=== PATIENT | male | born 1940 | race Caucasian/White ===

== ENCOUNTER 2016-06-05 20:33 | Inpatient (IN) | payer MEDICARE, MEDICAID ==
[~2016-06-05] VITALS: Ht 175.3 cm; Wt 68.5 kg
[2016-06-05 21:28] LABS: BASOPHILS # (AUTO) 0.4 /CMM (0.0-0.2); BASOPHILS % (AUTO) 3.5 % (0.0-2.0); DIFF TOTAL % 100 %; EOSINOPHILS % (AUTO) 0.4 % (0.0-6.0); HEMATOCRIT 36 % (39-51); HEMOGLOBIN 12.1 g/dL (13.5-17.5); LYMPHOCYTES # (AUTO) 1.2 /CMM (0.8-4.8); LYMPHOCYTES % (AUTO) 10.1 % (20.0-44.0); MEAN CORPUSCULAR HEMOGLOBIN 30 PG (26.0-33.0); MEAN CORPUSCULAR HGB CONC 34 g/dl (31.0-36.0); MEAN CORPUSCULAR VOLUME 87 fL (80-96); MONOCYTES # (AUTO) 0.8 /CMM (0.1-1.30); MONOCYTES % (AUTO) 6.6 % (2.0-12.0); NEUTROPHILS # (AUTO) 9.8 /CMM (1.8-8.9); NEUTROPHILS % (AUTO) 79.4 % (43.0-81.0); PLATELET COUNT (AUTO) 290 /CMM (150-450); RED BLOOD CELL COUNT(AUTO) 4.08 MIL/uL (4.5-6.0); WHITE BLOOD COUNT (AUTO) 12.2 K/uL (4.3-11.0)
[2016-06-05 21:29] LABS: CALCIUM, SERUM 8.2 mg/dL (8.5-10.1); CREATININE 0.8 mg/dL (0.6-1.3); POTASSIUM 3.3 mmol/L (3.5-5.1)
[2016-06-05 21:32] LABS: INR 1.01 (0.87-1.13); PROTHROMBIN TIME 10.6 SECS (9.5-12.7)
[2016-06-05 21:36] LABS: TROPONIN I 0.033 ng/mL (0.00-0.056)
[2016-06-05 23:06] VITALS: BP 140/80
[2016-06-06] MEDS ORDERED: oxyCODONE/APAP (5/325 MG) 1 UDTAB TABLET ONE ×2 (00:18→06:31)
[2016-06-06] MEDS ORDERED: ZOLPIDEM TARTRATE 5 MG TABLET ONE (00:19)
[2016-06-06] MEDS: oxyCODONE/APAP (5/325 MG) 1 UDTAB TABLET PO PRN ×2 (00:28→06:37)
[2016-06-06] MEDS ORDERED: ZOLPIDEM TARTRATE 5 MG TABLET PO PRN ×2 (00:30→22:00)
[2016-06-06] MEDS ORDERED: DEXTROSE 50%-WATER 50 ML DISP.SYRIN IV PRN (00:30)
[2016-06-06] MEDS: INSULIN REGULAR, HUMAN 100 UNIT/ML 3 ML VIAL SQ PRN ×4 (00:33→17:30)
[2016-06-06] MEDS ORDERED: MECLIZINE HCL 12.5 MG TABLET ONE ×2 (00:46→06:32)
[2016-06-06] MEDS ORDERED: BENAZEPRIL HCL 20 MG TABLET ONE (00:46)
[2016-06-06] MEDS ORDERED: ISOSORBIDE DINITRATE (20MG) 20 MG TABLET ONE (00:47)
[2016-06-06] MEDS ORDERED: GABAPENTIN 100 MG CAPSULE ONE (00:47)
[2016-06-06] MEDS: BLOOD SUGAR DIAGNOSTIC 1 EACH STRIP IN SCH ×4 (00:50→17:29)
[2016-06-06] MEDS: GABAPENTIN 100 MG CAPSULE PO SCH ×4 (00:51→17:28)
[2016-06-06] MEDS: ISOSORBIDE DINITRATE (20MG) 20 MG TABLET PO SCH ×4 (00:51→17:28)
[2016-06-06] MEDS ORDERED: BENAZEPRIL HCL 10 MG TABLET ONE (00:51)
[2016-06-06] MEDS: MECLIZINE HCL 12.5 MG TABLET PO PRN ×2 (00:54→06:36)
[2016-06-06] MEDS: BENAZEPRIL HCL 10 MG TABLET PO SCH ×2 (00:54→09:42)
[2016-06-06] MEDS ORDERED: LORAZEPAM 0.5 MG TABLET ONE (01:05)
[2016-06-06] MEDS: LORAZEPAM 0.5 MG TABLET PO PRN ×2 (01:08→09:36)
[2016-06-06] MEDS ORDERED: MECL12.5 PO (03:04)
[2016-06-06] MEDS ORDERED: LORA-258 PO (03:04)
[2016-06-06] MEDS ORDERED: FINA5TAB11 PO (03:04)
[2016-06-06] MEDS ORDERED: MULT-1119 PO (03:04)
[2016-06-06] MEDS ORDERED: ASPI81TA2 PO (03:04)
[2016-06-06] MEDS ORDERED: GABA-532 PO (03:04)
[2016-06-06] MEDS ORDERED: NA P133E RC (03:04)
[2016-06-06] MEDS ORDERED: ISOS20TA8 PO (03:04)
[2016-06-06] MEDS ORDERED: ACET-868 PO (03:04)
[2016-06-06] MEDS ORDERED: ZOLP5TAB2 PO (03:04)
[2016-06-06] MEDS ORDERED: QUET25TA PO (03:04)
[2016-06-06] MEDS ORDERED: BISA10SU61 RC (03:04)
[2016-06-06] MEDS ORDERED: NITR0.4T6 SL (03:04)
[2016-06-06] MEDS ORDERED: VIT1CAPS32 PO (03:04)
[2016-06-06] MEDS ORDERED: IPRA3AMP IH (03:04)
[2016-06-06] MEDS ORDERED: NIFE10CA2 PO (03:04)
[2016-06-06] MEDS ORDERED: FLUT1DIS28 IH (03:04)
[2016-06-06] MEDS ORDERED: METO25TA6 PO (03:04)
[2016-06-06] MEDS ORDERED: BENA20TA2 PO (03:04)
[2016-06-06] MEDS ORDERED: ATOR10TA PO (03:04)
[2016-06-06] MEDS ORDERED: OXYC-128 PO (03:04)
[2016-06-06] MEDS ORDERED: VIT500LI PO (03:04)
[2016-06-06] MEDS ORDERED: FURO-145 PO (03:04)
[2016-06-06] MEDS ORDERED: PANT40TA4 PO (03:04)
[2016-06-06] MEDS ORDERED: HYDR-552 PO (03:04)
[2016-06-06] MEDS ORDERED: PRED20TA PO (03:04)
[2016-06-06] MEDS ORDERED: POTA20TA83 PO (03:04)
[2016-06-06] MEDS ORDERED: MAGN400O6 PO (03:04)
[2016-06-06] MEDS ORDERED: ZINC220C8 PO (03:04)
[2016-06-06 03:26] LABS: BASOPHILS # (AUTO) 0.1 /CMM (0.0-0.2); BASOPHILS % (AUTO) 0.8 % (0.0-2.0); DIFF TOTAL % 100 %; EOSINOPHILS # (AUTO) 0.2 /CMM (0.0-0.7); EOSINOPHILS % (AUTO) 1.7 % (0.0-6.0); HEMATOCRIT 34 % (39-51); LYMPHOCYTES # (AUTO) 1.7 /CMM (0.8-4.8); MEAN CORPUSCULAR HEMOGLOBIN 28 PG (26.0-33.0); MEAN CORPUSCULAR HGB CONC 32 g/dl (31.0-36.0); MEAN CORPUSCULAR VOLUME 88 fL (80-96); MONOCYTES # (AUTO) 0.9 /CMM (0.1-1.30); MONOCYTES % (AUTO) 7.3 % (2.0-12.0); NEUTROPHILS % (AUTO) 76.2 % (43.0-81.0); PLATELET COUNT (AUTO) 293 /CMM (150-450); RED BLOOD CELL COUNT(AUTO) 3.89 MIL/uL (4.5-6.0); WHITE BLOOD COUNT (AUTO) 11.8 K/uL (4.3-11.0)
[2016-06-06 03:41] LABS: CALCIUM, SERUM 8.5 mg/dL (8.5-10.1); CREATININE 0.7 mg/dL (0.6-1.3); POTASSIUM 3.7 mmol/L (3.5-5.1)
[2016-06-06 04:24] VITALS: BP 140/70
[2016-06-06 06:40] VITALS: BP 123/73
[2016-06-06 08:00] VITALS: BP 123/73
[2016-06-06] MEDS ORDERED: Z GUARD REMEDY 2 OZ OINT TP SCH (09:30)
[2016-06-06] MEDS ORDERED: Z GUARD REMEDY 2 OZ OINT TP PRN (09:30)
[2016-06-06] MEDS: HYDROGEL DRESSING 90 GM TUBE TP SCH ×2 (09:30→12:16)
[2016-06-06] MEDS ORDERED: BISACODYL SUPP (10 MG) 10 MG/SUPP.RECT SUPP.RECT RC PRN (10:00)
[2016-06-06] MEDS ORDERED: MECLIZINE HCL 12.5 MG TABLET PO PRN (10:00)
[2016-06-06] MEDS ORDERED: ASPIRIN 81 MG TAB.CHEW PO SCH (10:00)
[2016-06-06] MEDS ORDERED: MULTIVITAMINS,THERAPEUTIC 1 UDTAB TABLET PO SCH (10:00)
[2016-06-06] MEDS ORDERED: predniSONE 20 MG TABLET PO SCH (10:00)
[2016-06-06] MEDS ORDERED: ATORVASTATIN 10 MG TABLET PO SCH (10:00)
[2016-06-06] MEDS ORDERED: NITROGLYCERIN 0.4 MG/TAB BOTTLE SL PRN (10:00)
[2016-06-06] MEDS ORDERED: FINASTERIDE (5 MG) 5 MG TABLET PO SCH (10:00)
[2016-06-06] MEDS ORDERED: PANTOPRAZOLE 40 MG TABLET.DR PO SCH (10:00)
[2016-06-06] MEDS ORDERED: BENAZEPRIL HCL 20 MG TABLET PO SCH (10:00)
[2016-06-06] MEDS ORDERED: ASCORBIC ACID SYRUP 500 MG/5 ML UDC PO SCH (10:00)
[2016-06-06] MEDS ORDERED: POTASSIUM CHLORIDE 20 MEQ TAB.PRT.SR PO SCH (10:00)
[2016-06-06] MEDS ORDERED: oxyCODONE/APAP (5/325 MG) 1 UDTAB TABLET PO PRN (10:00)
[2016-06-06] MEDS ORDERED: FUROSEMIDE 20 MG TABLET PO SCH (10:00)
[2016-06-06] MEDS: METOPROLOL TARTRATE 25 MG TABLET PO SCH ×2 (10:29→17:28)
[2016-06-06] MEDS: QUETIAPINE FUMARATE 25 MG TABLET PO SCH ×2 (10:32→12:18)
[2016-06-06] MEDS: HYDROCODONE/APAP 5/325MG 1 EACH TABLET PO PRN ×2 (10:35→17:27)
[2016-06-06] MEDS: ACETAMINOPHEN 325 MG TABLET PO SCH ×3 (10:35→17:28)
[2016-06-06] MEDS: NIFEdipine (10MG) 10 MG CAPSULE PO SCH ×2 (10:54→17:28)
[2016-06-06] MEDS ORDERED: ASCORBIC ACID 500 MG TABLET PO SCH (11:12)
[2016-06-06 12:00] VITALS: BP 137/81
[2016-06-06] MEDS ORDERED: LORAZEPAM 0.5 MG TABLET PO SCH (12:00)
[2016-06-06] MEDS: FLUTICASONE/SALMETEROL DISKUS IH SCH ×2 (12:15→17:26)
[2016-06-06] MEDS ORDERED: ISOSORBIDE DINITRATE (20MG) 20 MG TABLET PO SCH (13:00)
[2016-06-06] MEDS ORDERED: Medication Not On Formulary EA (Ipratropium/Albuterol Sulfate (Ipratr-Albuterol 0.5-3 Mg IH SCH (13:00)
[2016-06-06] MEDS ORDERED: ALBUTEROL FS 2.5 MG/0.5 ML VIAL.NEB NEB SCH (15:30)
[2016-06-06] MEDS ORDERED: IPRATROPIUM NEB FS 0.5 MG/2.5 ML AMPUL.NEB NEB SCH (15:30)
[2016-06-06 16:00] VITALS: BP_SYST 117; BP_SYST 123; BP_DIAS 73; BP_DIAS 80
[2016-06-06] MEDS ORDERED: ZINC SULFATE 220 MG CAPSULE PO SCH (17:00)
[2016-06-06 19:20] VITALS: BP 113/75
[2016-06-06] MEDS ORDERED: NA PHOS,M-B/NA PHOS,DI-BA 1 EA ENEMA RC PRN (22:00)
[2016-06-06] MEDS ORDERED: MAGNESIUM HYDROXIDE 30 ML UDC PO PRN (22:00)
[2016-06-07] MEDS ORDERED: BENAZEPRIL HCL 20 MG TABLET PO SCH (09:00)
[2016-06-07] MEDS ORDERED: Medication Not On Formulary EA (Vit C/Vitamin E Acetate/Cranb (Cranberry Concentrate Sof PO SCH (09:00)
== END 2016-06-06 19:50 | DRG 313 ==
LOC: ER 20:41 → TELE 22:14 → TELE-TD 06-06 11:45 → TELE 06-06 11:54
PROVIDERS: ADMIT Internal Medicine Nephrology; ATTEND Internal Medicine Nephrology
DX: R07.89 Other chest pain (principal); J44.0 Chronic obstructive pulmonary disease with (acute) lower respiratory infection; K21.9 Gastro-esophageal reflux disease without esophagitis; J44.9 Chronic obstructive pulmonary disease, unspecified; E87.6 Hypokalemia; I10 Essential (primary) hypertension
CPT/HCPCS: 36415; 71010-TC; 80048-TC; 82962-TC; 84484-TC; 85025-TC; 85730-TC; 87081-TC; 94799-TC; A4606; A6248; A6403; J1815; J8597; Z7610

== ENCOUNTER 2016-06-22 13:20 | Inpatient (IN) | payer MEDICARE, MEDICAID ==
[~2016-06-22] VITALS: Ht 180.3 cm; Wt 70.4 kg
[~2016-06-22 13:20] MED LIST: ACET-868 PO; ASPI81TA2 PO; ATOR10TA PO; BENA20TA2 PO; BISA10SU61 RC; FINA5TAB11 PO; FLUT1DIS28 IH; FURO-145 PO; GABA-532 PO; HYDR-552 PO; IPRA3AMP IH; ISOS20TA8 PO; LORA-258 PO; MAGN400O6 PO; MECL12.5 PO; METO25TA6 PO; MULT-1119 PO; NA P133E RC; NIFE10CA2 PO; NITR0.4T6 SL; OXYC-128 PO; PANT40TA4 PO; POTA20TA83 PO; PRED20TA PO; QUET25TA PO; VIT1CAPS32 PO; VIT500LI PO; ZINC220C8 PO; ZOLP5TAB2 PO
[2016-06-22 13:51] LABS: BASOPHILS # (AUTO) 0.9 /CMM (0.0-0.2); BASOPHILS % (AUTO) 4.2 % (0.0-2.0); DIFF TOTAL % 100 %; EOSINOPHILS # (AUTO) 0.2 /CMM (0.0-0.7); EOSINOPHILS % (AUTO) 0.7 % (0.0-6.0); HEMATOCRIT 42 % (39-51); HEMOGLOBIN 13.6 g/dL (13.5-17.5); LYMPHOCYTES # (AUTO) 3.5 /CMM (0.8-4.8); LYMPHOCYTES % (AUTO) 15.5 % (20.0-44.0); MEAN CORPUSCULAR HEMOGLOBIN 28 PG (26.0-33.0); MEAN CORPUSCULAR HGB CONC 33 g/dl (31.0-36.0); MEAN CORPUSCULAR VOLUME 86 fL (80-96); MONOCYTES # (AUTO) 0.5 /CMM (0.1-1.30); MONOCYTES % (AUTO) 2.2 % (2.0-12.0); NEUTROPHILS # (AUTO) 17.3 /CMM (1.8-8.9); NEUTROPHILS % (AUTO) 77.4 % (43.0-81.0); PLATELET COUNT (AUTO) 553 /CMM (150-450); RED BLOOD CELL COUNT(AUTO) 4.84 MIL/uL (4.5-6.0); WHITE BLOOD COUNT (AUTO) 22.4 K/uL (4.3-11.0)
[2016-06-22] MEDS ORDERED: INSU100V27 SQ (13:57)
[2016-06-22] MEDS ORDERED: TAMS0.4C34 PO (13:57)
[2016-06-22] MEDS ORDERED: CLON0.1T PO (13:57)
[2016-06-22] MEDS ORDERED: MULT1TAB11 PO (13:57)
[2016-06-22] MEDS ORDERED: BLOO-668 IN (13:57)
[2016-06-22] MEDS ORDERED: PRED10TA PO (13:57)
[2016-06-22] MEDS ORDERED: FERR325T28 PO (13:57)
[2016-06-22] MEDS ORDERED: CARV25TA PO (13:57)
[2016-06-22] MEDS ORDERED: NIFE20CA PO (13:57)
[2016-06-22] MEDS ORDERED: ASCO500T9 PO (13:57)
[2016-06-22] MEDS ORDERED: HYDR-4076 PO (13:57)
[2016-06-22] MEDS ORDERED: LISI40TA4 PO (13:57)
[2016-06-22] MEDS ORDERED: FLUT1DIS5 IH (13:57)
[2016-06-22] MEDS ORDERED: MECL-102 PO (13:57)
[2016-06-22] MEDS ORDERED: DULO30CA2 PO (13:57)
[2016-06-22] MEDS ORDERED: CYAN500T2 PO (13:57)
[2016-06-22 14:03] LABS: CALCIUM, SERUM 8.6 mg/dL (8.5-10.1); CREATININE 0.5 mg/dL (0.6-1.3); POTASSIUM 3.9 mmol/L (3.5-5.1)
[2016-06-22 14:05] LABS: PROTHROMBIN TIME 10.5 SECS (9.5-12.7)
[2016-06-22 14:11] LABS: TROPONIN I 0.055 ng/mL (0.00-0.056)
[2016-06-22 14:11] LABS: ADD UA MICROSCOPIC YES; KETONES,URINE 15 (NEGATIVE); LEUKOCYTE ESTERASE ,URINE Small (NEGATIVE); PH,URINE 5.5 (5.0-8.0)
[2016-06-22 14:14] LABS: ABG BASE EXCESS 11.8 mmol/L; ABG PCO2 78.1 mmHg (35.0-45.0); ABG PH 7.338 (7.350-7.450); ABG PO2 301.2 mmHg (75.0-100.0); ABG TOTAL HEMOGLOBIN 13.3 G/dL (13.5-18.0); ALLEN TEST Pass; AaDO2 187.2 mmHg; O2Hb 97.9 % (94.0-97.0)
[2016-06-22] MEDS ORDERED: IOHEXOL-350 100 ML VIAL IV ONE (14:29)
[2016-06-22] MEDS ORDERED: CT SWABBABLE VALVE TRANS SET 1 EA INFUS.SET MC ONE (14:29)
[2016-06-22] MEDS ORDERED: IV NS 0.9% 250 ML IV ONE ×2 (14:29→18:47)
[2016-06-22 14:34] LABS: ADD URINE CULTURE NO
[2016-06-22 14:36] LABS: RBC,URINE 21-50 /HPF (0-2)
[2016-06-22 14:44] LABS: LACTIC ACID 0.7 mmol/L (0.4-2.0)
[2016-06-22] MEDS ORDERED: SECONDARY IV SET 1 EA INFUS.SET MC ONE ×2 (14:53→18:47)
[2016-06-22] MEDS ORDERED: IV NS 0.9% 100 ML IV ONE (14:53)
[2016-06-22 15:00] LABS: LYMPHOCYTES % (MANUAL) 7 % (16-48); PLATELET ESTIMATE INCREASED
[2016-06-22] MEDS ORDERED: VANCOMYCIN 1 GM in IV D5W 250 ML IV ONE (15:00)
[2016-06-22] MEDS ORDERED: IV NS 0.9% 1,000 ML BAG IV ONE (15:00)
[2016-06-22] MEDS ORDERED: CEFEPIME 1 GM in IV D5W 50 ML IV ONE (15:00)
[2016-06-22 15:01] LABS: ANISOCYTOSIS 1+
[2016-06-22] MEDS ORDERED: methylPREDNISolone SOD SUCC 125 MG/2ML VIAL IV ONE (16:00)
[2016-06-22] MEDS ORDERED: methylPREDNISolone SOD SUCC 125 MG/2ML VIAL ONE (16:01)
[2016-06-22] MEDS ORDERED: IPRATROPIUM NEB FS 0.5 MG/2.5 ML AMPUL.NEB ONE (16:10)
[2016-06-22] MEDS ORDERED: ALBUTEROL FS 2.5 MG/3 ML VIAL.NEB ONE (16:10)
[2016-06-22] MEDS ORDERED: ALBUTEROL FS 2.5 MG/3 ML VIAL.NEB NEB ONE (16:30)
[2016-06-22] MEDS ORDERED: IPRATROPIUM NEB FS 0.5 MG/2.5 ML AMPUL.NEB NEB ONE (16:30)
[2016-06-22 18:00] VITALS: BP 139/73
[2016-06-22] MEDS ORDERED: IV SET PRIMARY PUMP SET 1 EA INFUS.SET MC ONE (18:47)
[2016-06-22] MEDS ORDERED: Z GUARD REMEDY 2 OZ OINT TP PRN (19:00)
[2016-06-22] MEDS ORDERED: DEXTROSE 50%-WATER 50 ML DISP.SYRIN IV PRN (19:00)
[2016-06-22] MEDS: ZOSYN IVPB 3.375 G in IV D5W 50ml IV SCH (19:02)
[2016-06-22] MEDS: ENOXAPARIN SODIUM 30 MG/0.3 ML DISP.SYRIN SQ SCH (19:06)
[2016-06-22] MEDS: ALBUTEROL FS 2.5 MG/0.5 ML VIAL.NEB NEB SCH ×2 (20:12→23:07)
[2016-06-22 20:13] VITALS: BP 123/69
[2016-06-22] MEDS: IPRATROPIUM NEB FS 0.5 MG/2.5 ML AMPUL.NEB NEB SCH ×2 (20:13→23:07)
[2016-06-22] MEDS ORDERED: NA PHOS,M-B/NA PHOS,DI-BA 1 EA ENEMA RC PRN (21:00)
[2016-06-22] MEDS ORDERED: predniSONE 10 MG TABLET PO SCH (21:00)
[2016-06-22] MEDS ORDERED: MAGNESIUM HYDROXIDE 30 ML UDC PO PRN (21:00)
[2016-06-22] MEDS ORDERED: BISACODYL SUPP (10 MG) 10 MG/SUPP.RECT SUPP.RECT RC PRN (21:00)
[2016-06-22 21:11] LABS: ABG BASE EXCESS 7.8 mmol/L; ABG PCO2 76.3 mmHg (35.0-45.0); ABG PH 7.303 (7.350-7.450); ABG PO2 57.5 mmHg (75.0-100.0); ABG TOTAL HEMOGLOBIN 13.4 G/dL (13.5-18.0); ALLEN TEST Pass; AaDO2 52.1 mmHg; O2Hb 84.6 % (94.0-97.0)
[2016-06-22] MEDS: BLOOD SUGAR DIAGNOSTIC 1 EACH STRIP IN SCH (21:19)
[2016-06-22] MEDS: TAMSULOSIN 0.4 MG CAP.SR.24H PO SCH (21:20)
[2016-06-22] MEDS: INSULIN REGULAR, HUMAN 100 UNIT/ML 3 ML VIAL SQ PRN (21:21)
[2016-06-22] MEDS: ACETAMINOPHEN 325 MG TABLET PO PRN (21:22)
[2016-06-22] MEDS: CARVEDILOL 12.5 MG TABLET PO SCH (21:23)
[2016-06-22 23:00] VITALS: BP 126/61
[2016-06-22 23:14] VITALS: BP 126/61
[2016-06-22 23:30] VITALS: BP 88/51
[2016-06-22 23:57] VITALS: BP 78/45
[2016-06-23] VITALS (21 sets, daily range): BP systolic 85–165; BP diastolic 43–80
[2016-06-23] MEDS ORDERED: IV NS 0.9% 250 ML IV ONE (00:58)
[2016-06-23] MEDS ORDERED: IV SET PRIMARY PUMP SET 1 EA INFUS.SET MC ONE (00:58)
[2016-06-23] MEDS ORDERED: SECONDARY IV SET 1 EA INFUS.SET MC ONE ×2 (00:58→10:13)
[2016-06-23] MEDS: ZOSYN IVPB 3.375 G in IV D5W 50ml IV SCH ×2 (01:12→05:02)
[2016-06-23 05:06] LABS: DIFF TOTAL % 100 %; HEMATOCRIT 37 % (39-51); HEMOGLOBIN 12.2 g/dL (13.5-17.5); LYMPHOCYTES # (AUTO) 0.4 /CMM (0.8-4.8); LYMPHOCYTES % (AUTO) 2.6 % (20.0-44.0); MEAN CORPUSCULAR HEMOGLOBIN 29 PG (26.0-33.0); MEAN CORPUSCULAR HGB CONC 33 g/dl (31.0-36.0); MEAN CORPUSCULAR VOLUME 87 fL (80-96); MONOCYTES # (AUTO) 0.4 /CMM (0.1-1.30); MONOCYTES % (AUTO) 2.8 % (2.0-12.0); NEUTROPHILS # (AUTO) 14.2 /CMM (1.8-8.9); NEUTROPHILS % (AUTO) 94.6 % (43.0-81.0); PLATELET COUNT (AUTO) 465 /CMM (150-450); RED BLOOD CELL COUNT(AUTO) 4.21 MIL/uL (4.5-6.0)
[2016-06-23 05:16] LABS: CALCIUM, SERUM 8.3 mg/dL (8.5-10.1); CREATININE 0.5 mg/dL (0.6-1.3); POTASSIUM 3.4 mmol/L (3.5-5.1)
[2016-06-23] MEDS: IPRATROPIUM NEB FS 0.5 MG/2.5 ML AMPUL.NEB NEB SCH ×3 (06:45→19:30)
[2016-06-23] MEDS: ALBUTEROL FS 2.5 MG/0.5 ML VIAL.NEB NEB SCH ×3 (06:45→19:30)
[2016-06-23] MEDS ORDERED: HYDROGEL DRESSING 90 GM TUBE TP PRN ×2 (09:00)
[2016-06-23] MEDS ORDERED: HYDROGEL DRESSING 90 GM TUBE TP SCH (09:00)
[2016-06-23] MEDS ORDERED: FLUTICASONE/SALMETEROL DISKUS IH SCH ×2 (09:00)
[2016-06-23] MEDS: BLOOD SUGAR DIAGNOSTIC 1 EACH STRIP IN SCH ×4 (09:05→21:36)
[2016-06-23] MEDS: FERROUS SULFATE (325 MG) 325 MG/TAB TABLET PO SCH (09:06)
[2016-06-23] MEDS: DULOXETINE HCL 30 MG CAPSULE.DR PO SCH ×2 (09:06→16:44)
[2016-06-23] MEDS: FINASTERIDE (5 MG) 5 MG TABLET PO SCH (09:06)
[2016-06-23] MEDS: ZINC SULFATE 220 MG CAPSULE PO SCH (09:06)
[2016-06-23] MEDS: CARVEDILOL 12.5 MG TABLET PO SCH ×2 (09:06→21:30)
[2016-06-23] MEDS: CYANOCOBALAMIN 500 MCG TABLET PO SCH (09:06)
[2016-06-23] MEDS: MECLIZINE HCL 25 MG TABLET PO SCH ×3 (09:06→16:44)
[2016-06-23] MEDS: ASCORBIC ACID 500 MG TABLET PO SCH (09:06)
[2016-06-23] MEDS: methylPREDNISolone SOD SUCC 40 MG/ML VIAL IV SCH ×3 (09:07→16:45)
[2016-06-23] MEDS: LISINOPRIL (20MG) 20 MG TABLET PO SCH (09:07)
[2016-06-23] MEDS: GABAPENTIN 100 MG CAPSULE PO SCH ×3 (09:09→16:44)
[2016-06-23] MEDS: hydrALAZINE HCL 25 MG TABLET PO SCH ×2 (09:10→16:45)
[2016-06-23] MEDS ORDERED: POTASSIUM CHLORIDE 20 MEQ TAB.PRT.SR PO ONE (10:00)
[2016-06-23] MEDS ORDERED: BUMETANIDE INJ 2 MG in IV NS 0.9% 32 ML IV ONE (10:00)
[2016-06-23] MEDS: HYDROGEL DRESSING 90 GM TUBE TP SCH (10:17)
[2016-06-23 12:19] LABS: ABG BASE EXCESS 6.3 mmol/L; ABG PCO2 64.2 mmHg (35.0-45.0); ABG PH 7.342 (7.350-7.450); ABG PO2 69.1 mmHg (75.0-100.0); ABG TOTAL HEMOGLOBIN 12.9 G/dL (13.5-18.0); ALLEN TEST Pass; AaDO2 54.8 mmHg; O2Hb 91.3 % (94.0-97.0)
[2016-06-23] MEDS: CLONIDINE HCL 0.1 MG TABLET PO SCH ×2 (12:40→16:45)
[2016-06-23] MEDS: INSULIN REGULAR, HUMAN 100 UNIT/ML 3 ML VIAL SQ PRN ×3 (13:02→21:42)
[2016-06-23] MEDS: TAMSULOSIN 0.4 MG CAP.SR.24H PO SCH (21:31)
[2016-06-23] MEDS: ENOXAPARIN SODIUM 30 MG/0.3 ML DISP.SYRIN SQ SCH (21:36)
[2016-06-24] VITALS (17 sets, daily range): BP systolic 112–169; BP diastolic 55–85
[2016-06-24] MEDS: IPRATROPIUM NEB FS 0.5 MG/2.5 ML AMPUL.NEB NEB SCH ×4 (00:30→19:32)
[2016-06-24] MEDS: ALBUTEROL FS 2.5 MG/0.5 ML VIAL.NEB NEB SCH ×4 (00:30→19:32)
[2016-06-24] MEDS: IV NS 0.9% 250 ML IV PRN (01:46)
[2016-06-24 05:25] LABS: BASOPHILS % (AUTO) 0.1 % (0.0-2.0); DIFF TOTAL % 100 %; HEMATOCRIT 40 % (39-51); LYMPHOCYTES # (AUTO) 0.4 /CMM (0.8-4.8); LYMPHOCYTES % (AUTO) 1.9 % (20.0-44.0); MEAN CORPUSCULAR HEMOGLOBIN 29 PG (26.0-33.0); MEAN CORPUSCULAR HGB CONC 33 g/dl (31.0-36.0); MEAN CORPUSCULAR VOLUME 87 fL (80-96); MONOCYTES # (AUTO) 0.4 /CMM (0.1-1.30); MONOCYTES % (AUTO) 1.9 % (2.0-12.0); NEUTROPHILS # (AUTO) 17.8 /CMM (1.8-8.9); NEUTROPHILS % (AUTO) 96.1 % (43.0-81.0); PLATELET COUNT (AUTO) 508 /CMM (150-450); RED BLOOD CELL COUNT(AUTO) 4.54 MIL/uL (4.5-6.0); WHITE BLOOD COUNT (AUTO) 18.5 K/uL (4.3-11.0)
[2016-06-24 05:33] LABS: CALCIUM, SERUM 8.2 mg/dL (8.5-10.1); CREATININE 0.5 mg/dL (0.6-1.3); PHOSPHORUS 2.7 mg/dL (2.5-4.9)
[2016-06-24 05:40] LABS: POTASSIUM 2.4 mmol/L (3.5-5.1)
[2016-06-24] MEDS ORDERED: POTASSIUM CHLORIDE 20 MEQ TAB.PRT.SR PO ONE ×2 (06:13→06:30)
[2016-06-24] MEDS ORDERED: POTASSIUM CL. PREMIX PERIPHER. 50 ML ONE (06:13)
[2016-06-24] MEDS: POTASSIUM CL. PREMIX PERIPHER. 50 ML IV SCH ×2 (06:28→08:34)
[2016-06-24] MEDS: BLOOD SUGAR DIAGNOSTIC 1 EACH STRIP IN SCH ×4 (08:25→22:20)
[2016-06-24] MEDS: ZINC SULFATE 220 MG CAPSULE PO SCH (08:26)
[2016-06-24] MEDS: CLONIDINE HCL 0.1 MG TABLET PO SCH ×3 (08:26→16:38)
[2016-06-24] MEDS: GABAPENTIN 100 MG CAPSULE PO SCH ×3 (08:26→16:39)
[2016-06-24] MEDS: FERROUS SULFATE (325 MG) 325 MG/TAB TABLET PO SCH (08:26)
[2016-06-24] MEDS: CYANOCOBALAMIN 500 MCG TABLET PO SCH (08:26)
[2016-06-24] MEDS: POTASSIUM CHLORIDE 20 MEQ TAB.PRT.SR PO SCH ×3 (08:26→11:08)
[2016-06-24] MEDS: MECLIZINE HCL 25 MG TABLET PO SCH ×3 (08:26→16:38)
[2016-06-24] MEDS: DULOXETINE HCL 30 MG CAPSULE.DR PO SCH ×2 (08:26→16:38)
[2016-06-24] MEDS: CARVEDILOL 12.5 MG TABLET PO SCH ×2 (08:27→20:16)
[2016-06-24] MEDS: ASCORBIC ACID 500 MG TABLET PO SCH (08:27)
[2016-06-24] MEDS: hydrALAZINE HCL 25 MG TABLET PO SCH ×2 (08:27→16:39)
[2016-06-24] MEDS: LISINOPRIL (20MG) 20 MG TABLET PO SCH (08:27)
[2016-06-24] MEDS: HYDROGEL DRESSING 90 GM TUBE TP SCH (08:28)
[2016-06-24] MEDS: methylPREDNISolone SOD SUCC 40 MG/ML VIAL IV SCH ×2 (08:28→16:37)
[2016-06-24] MEDS: FINASTERIDE (5 MG) 5 MG TABLET PO SCH (08:28)
[2016-06-24] MEDS: INSULIN REGULAR, HUMAN 100 UNIT/ML 3 ML VIAL SQ PRN ×4 (08:40→22:19)
[2016-06-24] MEDS ORDERED: SECONDARY IV SET 1 EA INFUS.SET MC ONE (10:36)
[2016-06-24] MEDS: Magnesium 1GM/D5W 100ML PREMIX 100 ML IV SCH ×4 (10:56→16:30)
[2016-06-24] MEDS ORDERED: FUROSEMIDE 40 MG/4 ML VIAL IV ONE (12:00)
[2016-06-24] MEDS: ACETAMINOPHEN 325 MG TABLET PO PRN (12:00)
[2016-06-24] MEDS: MORPHINE SULFATE INJ 2 MG/ML DISP.SYRIN IV PRN ×2 (12:11→19:44)
[2016-06-24] MEDS: MENTHOL/CETYLPYRD (CEPACOL) 1 LOZ LOZENGE PO PRN ×2 (12:31→22:32)
[2016-06-24] MEDS: ENOXAPARIN SODIUM 30 MG/0.3 ML DISP.SYRIN SQ SCH (20:14)
[2016-06-24] MEDS: TAMSULOSIN 0.4 MG CAP.SR.24H PO SCH (22:29)
[2016-06-25] VITALS (26 sets, daily range): BP systolic 113–155; BP diastolic 56–89
[2016-06-25] MEDS: MORPHINE SULFATE INJ 2 MG/ML DISP.SYRIN IV PRN ×2 (00:49→20:40)
[2016-06-25] MEDS: ALBUTEROL FS 2.5 MG/0.5 ML VIAL.NEB NEB SCH ×4 (01:12→19:56)
[2016-06-25] MEDS: IPRATROPIUM NEB FS 0.5 MG/2.5 ML AMPUL.NEB NEB SCH ×4 (01:12→19:56)
[2016-06-25] MEDS: IV NS 0.9% 250 ML IV PRN (04:15)
[2016-06-25 05:14] LABS: BASOPHILS # (AUTO) 0.4 /CMM (0.0-0.2); BASOPHILS % (AUTO) 1.5 % (0.0-2.0); DIFF TOTAL % 100 %; HEMATOCRIT 40 % (39-51); HEMOGLOBIN 12.6 g/dL (13.5-17.5); LYMPHOCYTES # (AUTO) 0.3 /CMM (0.8-4.8); LYMPHOCYTES % (AUTO) 1.2 % (20.0-44.0); MEAN CORPUSCULAR HEMOGLOBIN 28 PG (26.0-33.0); MEAN CORPUSCULAR HGB CONC 32 g/dl (31.0-36.0); MEAN CORPUSCULAR VOLUME 88 fL (80-96); MONOCYTES # (AUTO) 1.3 /CMM (0.1-1.30); MONOCYTES % (AUTO) 5.1 % (2.0-12.0); NEUTROPHILS # (AUTO) 24.1 /CMM (1.8-8.9); NEUTROPHILS % (AUTO) 92.2 % (43.0-81.0); PLATELET COUNT (AUTO) 489 /CMM (150-450); RED BLOOD CELL COUNT(AUTO) 4.56 MIL/uL (4.5-6.0); WHITE BLOOD COUNT (AUTO) 26.1 K/uL (4.3-11.0)
[2016-06-25 05:18] LABS: ALBUMIN 2.3 g/dL (3.4-5.0); BILIRUBIN,TOTAL 0.5 mg/dL (0.2-1.0); CALCIUM, SERUM 8.5 mg/dL (8.5-10.1); CREATININE 0.5 mg/dL (0.6-1.3); PHOSPHORUS 2.2 mg/dL (2.5-4.9); POTASSIUM 4.2 mmol/L (3.5-5.1); TOTAL PROTEIN, SERUM 5.7 g/dL (6.4-8.2)
[2016-06-25] MEDS: BLOOD SUGAR DIAGNOSTIC 1 EACH STRIP IN SCH ×4 (07:30→21:18)
[2016-06-25] MEDS: methylPREDNISolone SOD SUCC 40 MG/ML VIAL IV SCH (08:59)
[2016-06-25] MEDS: ZINC SULFATE 220 MG CAPSULE PO SCH (09:00)
[2016-06-25] MEDS: ASCORBIC ACID 500 MG TABLET PO SCH (09:00)
[2016-06-25] MEDS: LISINOPRIL (20MG) 20 MG TABLET PO SCH (09:00)
[2016-06-25] MEDS: FERROUS SULFATE (325 MG) 325 MG/TAB TABLET PO SCH (09:00)
[2016-06-25] MEDS: CARVEDILOL 12.5 MG TABLET PO SCH ×2 (09:00→21:15)
[2016-06-25] MEDS: NEUTRA PHOS 1 POWD.PACKET PO SCH ×2 (09:01→16:48)
[2016-06-25] MEDS: CYANOCOBALAMIN 500 MCG TABLET PO SCH (09:01)
[2016-06-25] MEDS: GABAPENTIN 100 MG CAPSULE PO SCH ×3 (09:01→16:48)
[2016-06-25] MEDS: MECLIZINE HCL 25 MG TABLET PO SCH ×3 (09:01→16:48)
[2016-06-25] MEDS: CLONIDINE HCL 0.1 MG TABLET PO SCH ×3 (09:01→16:48)
[2016-06-25] MEDS: FINASTERIDE (5 MG) 5 MG TABLET PO SCH (09:01)
[2016-06-25] MEDS: hydrALAZINE HCL 25 MG TABLET PO SCH ×2 (09:01→16:48)
[2016-06-25] MEDS: DULOXETINE HCL 30 MG CAPSULE.DR PO SCH ×2 (09:01→16:48)
[2016-06-25] MEDS: HYDROGEL DRESSING 90 GM TUBE TP SCH (09:02)
[2016-06-25] MEDS: INSULIN REGULAR, HUMAN 100 UNIT/ML 3 ML VIAL SQ PRN ×2 (12:39→17:23)
[2016-06-25] MEDS: PIPERACILLIN /TAZOBACTAM 3.375 G in IV D5W 50 ML IV SCH ×2 (17:05→23:33)
[2016-06-25] MEDS ORDERED: IV D5/ 0.9% NACL 1,000 ML IV ONE (21:06)
[2016-06-25] MEDS: ENOXAPARIN SODIUM 30 MG/0.3 ML DISP.SYRIN SQ SCH (21:17)
[2016-06-25] MEDS: TAMSULOSIN 0.4 MG CAP.SR.24H PO SCH (21:18)
[2016-06-25] MEDS: IV D5/ 0.9% NACL 1,000 ML IV PRN (21:22)
[2016-06-26] VITALS (18 sets, daily range): BP systolic 102–152; BP diastolic 59–79
[2016-06-26] MEDS: MORPHINE SULFATE INJ 2 MG/ML DISP.SYRIN IV PRN ×5 (01:34→22:58)
[2016-06-26] MEDS: ALBUTEROL FS 2.5 MG/0.5 ML VIAL.NEB NEB SCH ×4 (02:46→19:30)
[2016-06-26] MEDS: IPRATROPIUM NEB FS 0.5 MG/2.5 ML AMPUL.NEB NEB SCH ×4 (02:46→19:30)
[2016-06-26 05:00] LABS: DIFF TOTAL % 100 %; EOSINOPHILS % (AUTO) 0.1 % (0.0-6.0); HEMATOCRIT 40 % (39-51); HEMOGLOBIN 12.9 g/dL (13.5-17.5); LYMPHOCYTES # (AUTO) 0.3 /CMM (0.8-4.8); LYMPHOCYTES % (AUTO) 1.2 % (20.0-44.0); MEAN CORPUSCULAR HEMOGLOBIN 28 PG (26.0-33.0); MEAN CORPUSCULAR HGB CONC 32 g/dl (31.0-36.0); MEAN CORPUSCULAR VOLUME 87 fL (80-96); MONOCYTES # (AUTO) 0.7 /CMM (0.1-1.30); MONOCYTES % (AUTO) 2.4 % (2.0-12.0); NEUTROPHILS # (AUTO) 27.1 /CMM (1.8-8.9); NEUTROPHILS % (AUTO) 96.3 % (43.0-81.0); PLATELET COUNT (AUTO) 461 /CMM (150-450); WHITE BLOOD COUNT (AUTO) 28.2 K/uL (4.3-11.0)
[2016-06-26 05:20] LABS: CALCIUM, SERUM 8.4 mg/dL (8.5-10.1); CREATININE 0.5 mg/dL (0.6-1.3); PHOSPHORUS 2.4 mg/dL (2.5-4.9); POTASSIUM 3.6 mmol/L (3.5-5.1)
[2016-06-26] MEDS: PIPERACILLIN /TAZOBACTAM 3.375 G in IV D5W 50 ML IV SCH ×4 (05:22→23:37)
[2016-06-26] MEDS: BLOOD SUGAR DIAGNOSTIC 1 EACH STRIP IN SCH ×4 (07:49→21:52)
[2016-06-26] MEDS: INSULIN REGULAR, HUMAN 100 UNIT/ML 3 ML VIAL SQ PRN ×4 (07:52→22:00)
[2016-06-26] MEDS: ZINC SULFATE 220 MG CAPSULE PO SCH (09:30)
[2016-06-26] MEDS: methylPREDNISolone SOD SUCC 40 MG/ML VIAL IV SCH (09:30)
[2016-06-26] MEDS: CYANOCOBALAMIN 500 MCG TABLET PO SCH (09:30)
[2016-06-26] MEDS: FERROUS SULFATE (325 MG) 325 MG/TAB TABLET PO SCH (09:30)
[2016-06-26] MEDS: ASCORBIC ACID 500 MG TABLET PO SCH (09:30)
[2016-06-26] MEDS: GABAPENTIN 100 MG CAPSULE PO SCH ×3 (09:30→17:05)
[2016-06-26] MEDS: MECLIZINE HCL 25 MG TABLET PO SCH ×3 (09:31→17:05)
[2016-06-26] MEDS: FINASTERIDE (5 MG) 5 MG TABLET PO SCH (09:31)
[2016-06-26] MEDS: hydrALAZINE HCL 25 MG TABLET PO SCH ×2 (09:32→17:00)
[2016-06-26] MEDS: LISINOPRIL (20MG) 20 MG TABLET PO SCH (09:32)
[2016-06-26] MEDS: CARVEDILOL 12.5 MG TABLET PO SCH ×2 (09:32→21:19)
[2016-06-26] MEDS: CLONIDINE HCL 0.1 MG TABLET PO SCH ×3 (09:34→17:00)
[2016-06-26] MEDS: DULOXETINE HCL 30 MG CAPSULE.DR PO SCH ×2 (09:34→17:06)
[2016-06-26] MEDS: NEUTRA PHOS 1 POWD.PACKET PO SCH ×2 (11:18→17:05)
[2016-06-26] MEDS: HYDROGEL DRESSING 90 GM TUBE TP SCH (12:23)
[2016-06-26] MEDS ORDERED: SECONDARY IV SET 1 EA INFUS.SET MC ONE (17:12)
[2016-06-26] MEDS: IV D5/ 0.9% NACL 1,000 ML IV PRN (19:42)
[2016-06-26] MEDS: ENOXAPARIN SODIUM 30 MG/0.3 ML DISP.SYRIN SQ SCH (21:19)
[2016-06-26] MEDS: TAMSULOSIN 0.4 MG CAP.SR.24H PO SCH (21:49)
[2016-06-27] MEDS: ALBUTEROL FS 2.5 MG/0.5 ML VIAL.NEB NEB SCH ×3 (01:30→13:41)
[2016-06-27] MEDS: IPRATROPIUM NEB FS 0.5 MG/2.5 ML AMPUL.NEB NEB SCH ×3 (01:30→13:41)
[2016-06-27] MEDS: MORPHINE SULFATE INJ 2 MG/ML DISP.SYRIN IV PRN ×2 (03:43→12:40)
[2016-06-27] MEDS ORDERED: IV NS 0.9% 250 ML IV ONE (04:03)
[2016-06-27] MEDS ORDERED: IV SET PRIMARY PUMP SET 1 EA INFUS.SET MC ONE (04:06)
[2016-06-27] MEDS: PIPERACILLIN /TAZOBACTAM 3.375 G in IV D5W 50 ML IV SCH ×2 (05:30→12:42)
[2016-06-27] MEDS: BLOOD SUGAR DIAGNOSTIC 1 EACH STRIP IN SCH ×3 (06:40→17:53)
[2016-06-27] MEDS: INSULIN REGULAR, HUMAN 100 UNIT/ML 3 ML VIAL SQ PRN ×3 (06:46→17:58)
[2016-06-27 08:00] VITALS: BP 145/76
[2016-06-27 08:06] LABS: CALCIUM, SERUM 8.6 mg/dL (8.5-10.1); CREATININE 0.5 mg/dL (0.6-1.3); PHOSPHORUS 3.1 mg/dL (2.5-4.9); POTASSIUM 4.1 mmol/L (3.5-5.1)
[2016-06-27 08:08] LABS: DIFF TOTAL % 100 %; HEMATOCRIT 37 % (39-51); HEMOGLOBIN 12.3 g/dL (13.5-17.5); LYMPHOCYTES # (AUTO) 0.3 /CMM (0.8-4.8); LYMPHOCYTES % (AUTO) 1.2 % (20.0-44.0); MEAN CORPUSCULAR HEMOGLOBIN 29 PG (26.0-33.0); MEAN CORPUSCULAR HGB CONC 33 g/dl (31.0-36.0); MEAN CORPUSCULAR VOLUME 89 fL (80-96); MONOCYTES # (AUTO) 0.3 /CMM (0.1-1.30); MONOCYTES % (AUTO) 1.1 % (2.0-12.0); NEUTROPHILS # (AUTO) 24.4 /CMM (1.8-8.9); NEUTROPHILS % (AUTO) 97.7 % (43.0-81.0); PLATELET COUNT (AUTO) 368 /CMM (150-450); RED BLOOD CELL COUNT(AUTO) 4.19 MIL/uL (4.5-6.0)
[2016-06-27] MEDS: LISINOPRIL (20MG) 20 MG TABLET PO SCH (09:02)
[2016-06-27] MEDS: CLONIDINE HCL 0.1 MG TABLET PO SCH ×3 (09:03→17:53)
[2016-06-27] MEDS: MECLIZINE HCL 25 MG TABLET PO SCH ×3 (09:04→17:53)
[2016-06-27] MEDS: hydrALAZINE HCL 25 MG TABLET PO SCH ×2 (09:04→17:53)
[2016-06-27] MEDS: CARVEDILOL 12.5 MG TABLET PO SCH (09:04)
[2016-06-27] MEDS: FINASTERIDE (5 MG) 5 MG TABLET PO SCH (09:06)
[2016-06-27] MEDS: GABAPENTIN 100 MG CAPSULE PO SCH ×3 (09:06→17:53)
[2016-06-27] MEDS: ASCORBIC ACID 500 MG TABLET PO SCH (09:07)
[2016-06-27] MEDS: DULOXETINE HCL 30 MG CAPSULE.DR PO SCH ×2 (09:07→17:53)
[2016-06-27] MEDS: CYANOCOBALAMIN 500 MCG TABLET PO SCH (09:08)
[2016-06-27] MEDS: ZINC SULFATE 220 MG CAPSULE PO SCH (09:08)
[2016-06-27] MEDS: methylPREDNISolone SOD SUCC 40 MG/ML VIAL IV SCH (09:09)
[2016-06-27] MEDS: FERROUS SULFATE (325 MG) 325 MG/TAB TABLET PO SCH (09:09)
[2016-06-27] MEDS: HYDROGEL DRESSING 90 GM TUBE TP SCH (09:15)
[2016-06-27 11:41] LABS: ANISOCYTOSIS 2+; BAND % (MANUAL) 2 % (0.0-5.0); LYMPHOCYTES % (MANUAL) 1 % (16-48); PLATELET ESTIMATE ADEQUATE
[2016-06-27 16:00] VITALS: BP 126/67
[2016-06-27 17:53] VITALS: BP 126/67
== END 2016-06-27 18:40 | disposition short-term general hospital (02) | DRG 177 ==
LOC: ER 13:22 → TELE 17:02 → ICU 22:29 → MED 06-26 13:41
PROVIDERS: ADMIT Internal Medicine Nephrology; ATTEND Internal Medicine Nephrology
PROC: 5A09357 Assistance with Respiratory Ventilation, Less than 24 Consecutive Hours, Continuous Positive Airway Pressure (ICD-10-PCS; principal; 2016-06-23)
PROC: 05H633Z Insertion of Infusion Device into Left Subclavian Vein, Percutaneous Approach (ICD-10-PCS; 2016-06-26)
DX: J15.6 Pneumonia due to other Gram-negative bacteria (principal); J96.22 Acute and chronic respiratory failure with hypercapnia; L89.153 Pressure ulcer of sacral region, stage 3; G93.40 Encephalopathy, unspecified; I50.23 Acute on chronic systolic (congestive) heart failure; J44.1 Chronic obstructive pulmonary disease with (acute) exacerbation; E22.2 Syndrome of inappropriate secretion of antidiuretic hormone; N39.0 Urinary tract infection, site not specified; J44.0 Chronic obstructive pulmonary disease with (acute) lower respiratory infection; J21.9 Acute bronchiolitis, unspecified; L89.021 Pressure ulcer of left elbow, stage 1; J15.9 Unspecified bacterial pneumonia; E11.9 Type 2 diabetes mellitus without complications; E87.6 Hypokalemia; I10 Essential (primary) hypertension; I25.10 Atherosclerotic heart disease of native coronary artery without angina pectoris; Z87.891 Personal history of nicotine dependence; Z86.718 Personal history of other venous thrombosis and embolism; Z95.0 Presence of cardiac pacemaker; L98.9 Disorder of the skin and subcutaneous tissue, unspecified; N40.1 Benign prostatic hyperplasia with lower urinary tract symptoms; E83.39 Other disorders of phosphorus metabolism; D72.829 Elevated white blood cell count, unspecified; I35.1 Nonrheumatic aortic (valve) insufficiency; I34.0 Nonrheumatic mitral (valve) insufficiency
CPT/HCPCS: 36415; 36600; 71010-TC; 80048-TC; 80053-TC; 81000-TC; 82803-TC; 82962-TC; 83605-TC; 83735-TC; 83880; 84100-TC; 84484-TC; 85025-TC; 85730-TC; 87040-TC; 87081-TC; 87400; 93307-TC; 94760-TC; 94799-TC; A4216; A4349; A4606; A6248; J0692; J1650; J1815; J1940; J2270; J2543; J2920; J2930; J3370; J3475; J3480; J3490; J7030; J7042; J7050; J7060; J8597; Q9967; Z7610